=== PATIENT | male | born 1980 | race Caucasian/White ===

== ENCOUNTER 2017-02-18 19:21 | Emergency (ER) | payer SELFPAY ==
[~2017-02-18] VITALS: Ht 182.9 cm; Wt 97.5 kg
[2017-02-18 19:32] VITALS: BP 191/123
--- NOTE | 2017-02-18 19:32 | NUR ---
PT PRESENTED TO THE ER WITH A C/O LEFT EYE PAIN, REDNESS, DISCHARGE X 2 DAYS. LOWER EYE EDEMA NOTED.
== END 2017-02-18 20:03 | disposition home or self-care (01) ==
LOC: ER 19:26
DX: H10.32 Unspecified acute conjunctivitis, left eye (principal); F17.210 Nicotine dependence, cigarettes, uncomplicated
CPT/HCPCS: 99283; 99406; A4606; Z7610